=== PATIENT | female | born 1935 | race Caucasian/White ===

== ENCOUNTER 2017-05-10 06:47 | Day surgery (SDC) | payer MEDICARE, BC ==
[~2017-05-10] VITALS: Ht 165.1 cm; Wt 96.1 kg
[~2017-05-10 06:47] MED LIST: ASPIRIN E.C. 8181 MG PO; BETAPACE 80MG80 MG PO; BRILINTA90 MG PO; CALCIUM,MAG,ZINC PO; CATAPRES 0.1MG0.1 MG PO; CO Q-1010 M1 PO; COREG 6.256.25 MG/TA PO; COUMADIN 3MG3 MG/TAB PO; COUMADIN 5MG5 MG/TAB PO; COUMADIN 6MG6 MG/TAB PO; COZAAR100 MG PO; FISH OIL 1000MG1 CAP PO; FLAX OIL1000 MG; GLUCOPHAGE500 MG/TAB PO; LASIX 40MG TABL40 MG PO; LIPITOR 10MG10 MG PO; LOVENOX 100100 MG/ML SQ; LOVENOX150 MG/ML SC; MAGNEBIND 300 21 TAB PO; MASON NATURAL2000 IU PO; MULTI VITAMINS1 TAB PO; NEURONTIN600 MG/TAB PO; NIACOR500 MG PO; NIASPAN 500MG500 MG PO; NITROSTAT0.4 MG/TAB SL; NORCO 325 MG-7.1 TAB PO; PLAVIX 75MG TAB75 MG PO; STOOL SOFTENER100 M2 PO; TEGRETOL 2200 MG/TA1 PO; THE MEDICINE S200 M2 PO; VITAMIN B COMPL1 SGL PO; VITAMIN B COMPL1 T16 PO; VITAMIN C500 MG PO; VITAMIN D1000 IU PO; VITAMIN D31000 IU PO
[2017-05-10 07:07] LABS: HEMOGLOBIN 12.3 g/dl (12.5-16.0); MEAN CELL VOLUME 95 fl (80.0-100.0); MEAN CORPUSCULAR HEMOGLOBIN 32 pg (27.0-31.0); MEAN CORPUSCULAR HGB CONC 34 g/dl (33.0-37.0); MEAN PLATELET VOLUME 8.3 fl (7.4-10.4); PLATELET COUNT 263 K/mm3 (130-400); RED BLOOD COUNT 3.84 M/mm3 (4.10-5.30); REDCELL DISTRIBUTION WIDTH-CV 12.7 % (11.5-14.5)
[2017-05-10 07:11] LABS: HEMATOCRIT 36.5 % (37.0-47.0)
[2017-05-10 07:14] LABS: INR 2.5 (0.8-3.0)
[2017-05-10 07:17] LABS: CALCIUM 8.8 mg/dL (8.4-10.2); CREATININE, serum 0.74 mg/dL (0.52-1.25)
[2017-05-10 07:47] VITALS: BP 140/91; PULSE 64; TEMP 97.1
[2017-05-10] MEDS ORDERED: TYLENOL 325MG325 MG PO (07:49)
[2017-05-10] MEDS ORDERED: CLARITIN 1010 MG/TAB PO (07:51)
[2017-05-10] MEDS ORDERED: FLONASEALLERGY NS (07:52)
[2017-05-10] MEDS ORDERED: LASIX 20MG TABL20 MG PO (07:56)
[2017-05-10] MEDS ORDERED: BETAPACE 80MG80 MG PO (07:58)
[2017-05-10] MEDS ORDERED: GLUCOPHAGE500 MG/TAB PO (07:58)
[2017-05-10] MEDS ORDERED: SYNTHROID 0.0.025 MG PO (08:01)
[2017-05-10] MEDS ORDERED: NORVASC2.5 MG PO (08:02)
[2017-05-10] MEDS ORDERED: K-DUR 10 MEQ T10 MEQ PO (08:03)
[2017-05-10] MEDS ORDERED: CALCIUM-MAGNES1 EAC1 PO (08:04)
[2017-05-10 09:20] VITALS: BP 108/62; PULSE 65
[2017-05-10 09:30] VITALS: BP 123/61; PULSE 57
[2017-05-10] MEDS ORDERED: BETAPACEAF120 PO (09:35)
[2017-05-10 09:45] VITALS: BP 123/72; PULSE 57
[2017-05-10 10:00] VITALS: BP 138/92; PULSE 59
[2017-05-10 10:15] VITALS: BP 124/70; PULSE 59
== END 2017-05-10 10:40 | disposition home or self-care (01) ==
LOC: COL.CAR 06:47
PROVIDERS: Internal Medicine Cardiovascular Disease
DX: I48.0 Paroxysmal atrial fibrillation (principal); I11.0 Hypertensive heart disease with heart failure; I50.33 Acute on chronic diastolic (congestive) heart failure; I25.10 Atherosclerotic heart disease of native coronary artery without angina pectoris; I08.1 Rheumatic disorders of both mitral and tricuspid valves; E11.9 Type 2 diabetes mellitus without complications; Z79.84 Long term (current) use of oral hypoglycemic drugs; G47.33 Obstructive sleep apnea (adult) (pediatric); K21.9 Gastro-esophageal reflux disease without esophagitis; E66.9 Obesity, unspecified; Z68.35 Body mass index [BMI] 35.0-35.9, adult; Z79.01 Long term (current) use of anticoagulants; Z79.82 Long term (current) use of aspirin; G50.0 Trigeminal neuralgia; Z88.8 Allergy status to other drugs, medicaments and biological substances; E78.5 Hyperlipidemia, unspecified; Z83.2 Family history of diseases of the blood and blood-forming organs and certain disorders involving the immune mechanism; Z82.3 Family history of stroke; Z87.891 Personal history of nicotine dependence; Z96.659 Presence of unspecified artificial knee joint; Z95.5 Presence of coronary angioplasty implant and graft
CPT/HCPCS: G9654; J0330; J2704; J7030

== ENCOUNTER 2017-08-30 06:34 | Day surgery (SDC) | payer MEDICARE, BC ==
[~2017-08-30] VITALS: Ht 165.2 cm; Wt 96.2 kg
[~2017-08-30 06:34] MED LIST changes: +BETAPACEAF120 PO; +CALCIUM-MAGNES1 EAC1 PO; +CLARITIN 1010 MG/TAB PO; +FLONASEALLERGY NS; +K-DUR 10 MEQ T10 MEQ PO; +LASIX 20MG TABL20 MG PO; +NORVASC2.5 MG PO; +SYNTHROID 0.0.025 MG PO; +TYLENOL 325MG325 MG PO
[2017-08-30 07:05] LABS: INR 2.3 (0.8-3.0); POTASSIUM 3.8 mmol/L (3.4-5.0); PROTHROMBIN TIME 26.7 SECONDS (9.7-12.8)
[2017-08-30 07:06] VITALS: BP 126/73; PULSE 71; TEMP 97.8
[2017-08-30] MEDS ORDERED: BETAPACE 120MG120 MG PO (07:13)
[2017-08-30 07:40] LABS: THYROID STIMULATING HORMONE 3.1 uIU/mL (0.465-4.680)
[2017-08-30 09:05] VITALS: BP 90/43; PULSE 49
[2017-08-30 09:20] VITALS: BP 89/55; PULSE 73
[2017-08-30 09:35] VITALS: BP 105/44; PULSE 58
== END 2017-08-30 09:50 | disposition home or self-care (01) ==
LOC: COL.CAR 06:34
PROVIDERS: Internal Medicine Cardiovascular Disease
DX: I48.0 Paroxysmal atrial fibrillation (principal); I25.10 Atherosclerotic heart disease of native coronary artery without angina pectoris; I10 Essential (primary) hypertension; E78.00 Pure hypercholesterolemia, unspecified; I34.0 Nonrheumatic mitral (valve) insufficiency; Z88.8 Allergy status to other drugs, medicaments and biological substances; Z79.899 Other long term (current) drug therapy; Z79.01 Long term (current) use of anticoagulants; Z79.84 Long term (current) use of oral hypoglycemic drugs; Z95.5 Presence of coronary angioplasty implant and graft; Z79.82 Long term (current) use of aspirin; Z82.49 Family history of ischemic heart disease and other diseases of the circulatory system
CPT/HCPCS: J7030

== ENCOUNTER 2018-01-04 08:10 | Day surgery (SDC) | payer MEDICARE, BC ==
[~2018-01-04] VITALS: Ht 165.2 cm; Wt 99.5 kg
[~2018-01-04 08:10] MED LIST changes: +BETAPACE 120MG120 MG PO
[2018-01-04] MEDS ORDERED: COUMADIN 6MG6 MG/TAB PO (08:34)
[2018-01-04 09:04] VITALS: BP 122/75; PULSE 47; TEMP 98
[2018-01-04 09:10] LABS: HEMOGLOBIN 12.3 g/dl (12.5-16.0); MEAN CELL VOLUME 100 fl (80.0-100.0); MEAN CORPUSCULAR HEMOGLOBIN 34 pg (27.0-31.0); MEAN CORPUSCULAR HGB CONC 34 g/dl (33.0-37.0); MEAN PLATELET VOLUME 9.4 fl (7.4-10.4); PLATELET COUNT 188 K/mm3 (130-400); RED BLOOD COUNT 3.66 M/mm3 (4.10-5.30); REDCELL DISTRIBUTION WIDTH-CV 13.2 % (11.5-14.5)
[2018-01-04 09:12] LABS: HEMATOCRIT 36.4 % (37.0-47.0)
[2018-01-04 09:13] LABS: INR 2.3 (0.8-3.0); PROTHROMBIN TIME 25.7 SECONDS (9.7-12.8)
[2018-01-04 09:21] LABS: CALCIUM 8.4 mg/dL (8.4-10.2); CREATININE, serum 0.91 mg/dL (0.52-1.25); POTASSIUM 4.2 mmol/L (3.4-5.0)
[2018-01-04 09:51] LABS: THYROID STIMULATING HORMONE 5.22 uIU/mL (0.465-4.680)
[2018-01-04] MEDS ORDERED: PACERONE400 MG PO (10:00)
[2018-01-04] MEDS ORDERED: TOPROL XL 50MG50 MG PO (10:00)
[2018-01-04 10:15] VITALS: BP 108/72; PULSE 54; TEMP 98
[2018-01-04 10:29] VITALS: BP 108/73; PULSE 52; TEMP 98
[2018-01-04 10:44] VITALS: BP 108/73; PULSE 54; TEMP 98
== END 2018-01-04 11:03 | disposition home or self-care (01) ==
LOC: COL.CAR 08:10
PROVIDERS: Internal Medicine Cardiovascular Disease
DX: I48.0 Paroxysmal atrial fibrillation (principal); I48.91 Unspecified atrial fibrillation; I08.1 Rheumatic disorders of both mitral and tricuspid valves; I42.0 Dilated cardiomyopathy; I25.10 Atherosclerotic heart disease of native coronary artery without angina pectoris; Z87.891 Personal history of nicotine dependence; Z79.899 Other long term (current) drug therapy; Z79.82 Long term (current) use of aspirin; E78.00 Pure hypercholesterolemia, unspecified; Z71.3 Dietary counseling and surveillance; G47.33 Obstructive sleep apnea (adult) (pediatric); I10 Essential (primary) hypertension
CPT/HCPCS: G9654; J0330; J2704

== ENCOUNTER 2021-09-29 07:51 | Observation (INO) | payer MEDICARE, BC ==
[2021-09-29] VITALS (10 sets, daily range): BP systolic 110–147; BP diastolic 55–86; PULSE 59–89; TEMP 98.5–98.6
[~2021-09-29] VITALS: Ht 162.6 cm; Wt 92.8 kg
[~2021-09-29 07:51] MED LIST changes: +PACERONE400 MG PO; +TOPROL XL 50MG50 MG PO
[2021-09-29] MEDS ORDERED: ASPIRIN 81M81 MG/TA2 PO (09:56)
[2021-09-29] MEDS ORDERED: TEGRETOL 2200 MG/TA1 PO (09:56)
[2021-09-29] MEDS ORDERED: NEURONTIN600 MG/TAB PO (10:04)
[2021-09-29] MEDS ORDERED: STOOL SOFTENER100 M2 PO (10:05)
[2021-09-29] MEDS ORDERED: LASIX 20MG TABL20 MG PO (10:06)
[2021-09-29] MEDS ORDERED: COUMADIN4 MG PO (10:07)
[2021-09-29] MEDS ORDERED: K-DUR 10 MEQ T10 MEQ PO (10:07)
[2021-09-29] MEDS ORDERED: PRILOSEC 20MG20 MG PO (10:08)
[2021-09-29] MEDS ORDERED: TOPROL XL 50MG50 MG PO (10:09)
[2021-09-29] MEDS ORDERED: VITAMIN B COMPL1 SGL PO (10:09)
[2021-09-29] MEDS ORDERED: CALCIUM 600MG+D1 TAB PO (10:10)
[2021-09-29] MEDS ORDERED: MULTI VITAMINS1 TAB PO (10:11)
[2021-09-29] MEDS ORDERED: EPA FISH OIL1 SGL PO (10:12)
[2021-09-29] MEDS ORDERED: VITAMIN C500 MG PO (10:13)
[2021-09-29] MEDS ORDERED: MASON NATURAL2000 IU PO (10:14)
[2021-09-29] MEDS ORDERED: TYLENOL 500MG500 MG PO (10:14)
[2021-09-29] MEDS ORDERED: GLUCOPHAGE500 MG/TAB PO (10:15)
[2021-09-29] MEDS ORDERED: ZAROXOLYN 2.52.5 MG PO (10:16)
[2021-09-29] MEDS ORDERED: REFRESH TEARS 330 ML OP (10:17)
[2021-09-29] MEDS ORDERED: ULTRAM 50MG TAB50 MG PO (10:17)
--- NOTE | 2021-09-29 18:39 | NUR ---
RECEIVED PT FROM NADYA RN FROM PACU AT 1300, DAUGHTER NATANAEL AT THE BEDSIDE, PT IS AOX4, CAN MOVE ALL EXTREMITIES, PT HAS LIMITED ROM BL UPPER EXTERMITIES DUE TO ROTATOR CUFF PROBLEMS, SCDS APPLIED, PT ORIENTED TO THE ROOM, PT COMPLAINS OF NO PAIN AT THIS TIME, AMBULATED PT IN THE HALLWAYS, TOLERATED WELL, ADVANCED PTS DIET, PT IS AMBULATING TO THE RESTROOM WITH ASSISTANCE, IV SALINE LOCKED, BED IN LOWEST POSITION AND CALL LIGHT WITHIN REACH
--- NOTE | 2021-09-29 20:50 | NUR ---
Pt. sitting up in bed. Pt. is A&Ox3 but forgettful. Shift assessment complete. INT to lt. hand patent. Pt. reports pain to abd. at a 4 on pain scale, giving meds per orders. Abd. incisions x3 intact. Pt. denies further needs, call light within reach.
[2021-09-30 00:21] VITALS: BP 120/59; PULSE 77; TEMP 98.4
[2021-09-30 05:07] VITALS: BP 120/61; PULSE 71; TEMP 97.9
--- NOTE | 2021-09-30 06:12 | NUR ---
Pt. slept well through the night. Pt. remains A&OX3. Pt. denies further needs at this time.
[2021-09-30 07:26] VITALS: BP 128/60; PULSE 74; TEMP 97.9
--- NOTE | 2021-09-30 09:34 | NUR ---
PATIENT ALERT AND ORIENTED X4. VSS. PATIENT REPORTS PAIN 4/10. IV TO LEFT HAND INT, FLUSHES WELL. LAP SITES X3, CDI. ASSESSMENT PERFORMED. AM MEDS ADMINISTERED. PATIENT RESTING IN CHAIR WITH CALL LIGHT NEAR.
--- NOTE | 2021-09-30 10:15 | NUR ---
Initial visit; Patient thanked Collections Specialist for looking in on her and praying with her. Collections Specialist visited with Jackeline and offered God's blessings.
[2021-09-30 11:45] VITALS: BP 111/65; PULSE 68; TEMP 98.2
--- NOTE | 2021-09-30 12:32 | NUR ---
DISCHARGE INSTRUCTIONS PROVIDED. PATIENT EDUCATION GIVEN. FOLLOW UP APPOINTMENTS DISCUSSED. PATIENT DENIES ANY QUESTIONS OR CONCERNS. IV DC'D. PATIENT ESCORTED OUT VIA WHEELCHAIR.
--- NOTE | 2021-09-30 12:59 | NUR ---
fish house worker met with patient to complete intake and discuss discharge plan. Patients daughter Silvana ([phone]) and son in law are present at bedside. Patient reports that she lives at home alone in [place]. Patient reports that she is independent with her ADL's but that "[facility] [facility]" comes out twice a week to help with bathing. Patient utilizes a rollator walker to assist with mobility and a cane prn.Patient does not have any home oxygen needs. PCP is Dr. Nikita Yuen and she utilizes [facility] for prescriptions. Patient reports that she does have a [facility] established established listing her two daughters Silvana and Radha ([phone]). Patient is scheduled to return home later today with no concerns. Discharge plan: Home with family.
== END 2021-09-30 12:20 | disposition home or self-care (01) ==
LOC: SDCO 07:51 → SURG 13:00 → SDCO 14:02 → SURG 14:03
PROVIDERS: ADMIT Surgery
DX: K80.10 Calculus of gallbladder with chronic cholecystitis without obstruction (principal); I48.20 Chronic atrial fibrillation, unspecified; Z79.01 Long term (current) use of anticoagulants; Z79.899 Other long term (current) drug therapy; Z87.891 Personal history of nicotine dependence; G47.33 Obstructive sleep apnea (adult) (pediatric)
CPT/HCPCS: J0330; J0360; J0690; J1170; J2405; J2704; J3010; J7120